=== PATIENT | male | born 1980 ===

== ENCOUNTER 2017-05-05 23:25 | Emergency (ER) | payer SELFPAY ==
[2017-05-06 00:05] VITALS: O2SAT 99
--- NOTE | 2017-05-06 01:14 | C.PDOC ---
History Of Present Illness Patient came in due to epigastric pain for 3 days. Chief Complaint (Nursing): Abdominal Pain History Per: Patient History/Exam Limitations: no limitations Onset/Duration Of Symptoms: Days Current Symptoms Are (Timing): Still Present Severity: Moderate Pain Scale Rating Of: 3 Location Of Pain/Discomfort: Epigastric Radiation Of Pain To:: None Quality Of Discomfort: Sharp, "Pain" Associated Symptoms: denies: Fever, Chills, Nausea, Vomiting, Diarrhea, Back Pain Exacerbating Factors: None Alleviating Factors: None Last Bowel Movement: Today Recent travel outside of the [place]: No Additional History Per: Patient Past Medical History Vital Signs: Last Vital Signs Temp 98.4 F 05/06/17 00:01 Pulse 82 05/06/17 00:01 Resp 18 05/06/17 00:01 BP 122/85 05/06/17 00:01 Pulse Ox 99 05/06/17 01:21 Family History: States: Unknown Family Hx - Social History Hx Alcohol Use: Yes Hx Substance Use: Yes - Immunization History Hx Tetanus Toxoid Vaccination: No Hx Influenza Vaccination: No Hx Pneumococcal Vaccination: No Review Of Systems Constitutional: Negative for: Fever, Chills, Sweats Cardiovascular: Negative for: Chest Pain, Palpitations, Orthopnea Respiratory: Negative for: Cough, Shortness of Breath, Hemoptysis Gastrointestinal: Positive for: Abdominal Pain. Negative for: Nausea, Vomiting , Diarrhea, Constipation, Melena Genitourinary: Negative for: Dysuria, Frequency, Incontinence Musculoskeletal: Negative for: Neck Pain, Shoulder Pain, Arm Pain Skin: Negative for: Rash, Lesions Neurological: Negative for: Weakness Psych: Negative for: Anxiety Physical Exam - Physical Exam Appears: Other (moderate distress due to pain) Skin: Normal Color Head: Atraumatic Nose: Normal Oral Mucosa: Moist Tongue: Normal Appearing Throat: Normal Neck: Normal Cardiovascular: Rhythm Regular, No Friction Rub, No Murmur Respiratory: Normal Breath Sounds Gastrointestinal/Abdominal: Soft, Tenderness (epigastric area, no lower quqdrant tenderness), No Organomegaly, No Mass, No Distention, No Guarding, No Rebound, No Hernia, Other (epigastric tenderness) Back: Normal Inspection Extremity: Normal ROM ED Course And Treatment - Laboratory Results Result Diagrams: 05/06/17 01:47 05/06/17 01:47 O2 Sat by Pulse Oximetry: 99 Disposition Counseled Patient/Family Regarding: Diagnosis - Disposition Referrals: [facility] at [facility] [Outside] Disposition: HOME/ ROUTINE Disposition Time: 03:17 Condition: STABLE Prescriptions: Famotidine [Pepcid] 20 mg PO BID #20 tab Sucralfate [Carafate] 1 gm PO BID #20 tab Instructions: Gastritis (DC), Ulcer and Gastritis Diet, Acute Abdomen (Belly Pain) Forms: [facility] (Montenegrin), Gen Discharge Inst Sudanese Print Language: LITHUANIAN - POA Present On Arrival: None - Clinical Impression Clinical Impression: Abdominal pain, Gastritis and duodenitis
[2017-05-06] MEDS ORDERED: Sucralfate 1 gm/10 ml Oral Susp UD PO STA (01:18)
[2017-05-06] MEDS ORDERED: Belladonna-Phenobarbital PO STA (01:19)
[2017-05-06] MEDS ORDERED: Belladonna-Phenobarbital ONE (01:41)
[2017-05-06 01:54] LABS: BASO # 0.1 K/uL (0.0-0.2); BASO % 0.7 % (0.0-2.0); EOS # 0.3 K/uL (0.0-0.7); EOS % 3.3 % (0.0-4.0); HEMOGLOBIN 10.8 g/dL (12.0-18.0); LYMPH # 2.6 K/uL (1.0-4.3); LYMPH % 29.8 % (20.0-40.0); MEAN CORPUSCULAR HEMOGLOBIN 30.4 pg (27.0-31.0); MEAN CORPUSCULAR HGB CONC 33.7 g/dL (33.0-37.0); MEAN PLATELET VOLUME 7.6 fL (7.2-11.7); MONO # 0.5 K/uL (0.0-0.8); MONO % 5.6 % (0.0-10.0); NEUT # 5.4 K/uL (1.8-7.0); NEUT % 60.6 % (50.0-75.0); RBC 3.55 Mil/uL (4.40-5.90); RED CELL DISTRIBUTION WIDTH 14.8 % (11.5-14.5); WHITE BLOOD COUNT 8.9 K/uL (4.8-10.8)
[2017-05-06 01:56] LABS: URINE BACTERIA RARE (<OCC); URINE BILIRUBIN NEGATIVE (NEGATIVE); URINE BLOOD NEGATIVE (NEGATIVE); URINE CLARITY Clear (Clear); URINE COLOR Yellow (YELLOW); URINE GLUCOSE (UA) NORMAL (Normal); URINE LEUKOCYTE ESTERASE NEG Leu/uL (Negative); URINE NITRATE NEGATIVE (NEGATIVE); URINE PROTEIN NEGATIVE (NEGATIVE)
[2017-05-06 02:02] LABS: ALB/GLOB RATIO 1.3 (1.0-2.1); ALBUMIN 3.5 g/dL (3.5-5.0); ALT/SGPT 25 U/L (21-72); AST/SGOT 24 U/L (17-59); BLOOD UREA NITROGEN 12 mg/dL (9-20); CALCIUM 8.2 mg/dl (8.6-10.4); GFR AFRICAN-AMERICAN > 60; GFR NON-AFRICAN AMERICAN > 60; LIPASE 67 U/L (23-300)
[2017-05-06 03:32] VITALS: BP 128/85; PULSE 59; RESP 17; TEMP 98.3
== END 2017-05-06 05:42 | disposition home or self-care (01) ==
LOC: C.ER 23:25
DX: K29.70 Gastritis, unspecified, without bleeding (principal); K29.80 Duodenitis without bleeding; R10.13 Epigastric pain
CPT/HCPCS: 80053; 81001; 83690; 85025; 96374; 99285; C9113